=== PATIENT | female | born 1955 | race Caucasian/White ===

== ENCOUNTER 2017-04-08 18:21 | Emergency (ER) | payer OTHER ==
[~2017-04-08] VITALS: Ht 152.4 cm; Wt 85.3 kg
--- NOTE | ~2017-04-08 | EKG ---
[place] [address] [employer] [facility] [place] [address] ELECTROCARDIOGRAM REPORT Name: DMITRIY HICKS [id number] Admission: 04/08/17 Attend Phys: Discharge: 04/08/17 Date of : 51 Report #: [id number] THIS REPORT FOR: //name// [facility] ED Test Date: 2017-04-08 Test Time: 18:25:11 Pat Name: DMITRIY HICKS Department: Room: Gender: F [employer]: JS : 1955 Requested By: Amalia Gonsales Order Number: [id number] MD: Barry Ponce Measurements Intervals [place] Rate: 69 P: 48 CO: 134 QRS: -13 QRSD: 90 T: 20 QT: 394 QTc: 422 Interpretive Statements Sinus rhythm Low voltage, precordial leads Abnormal R-wave progression, early transition No previous ECG available for comparison Electronically Signed On 04-09-2017 16:42:05 CDT by Barry Ponce [email or web address] <ELECTRONICALLY SIGNED> By: Barry Ponce MD, [facility] 04/09/17 1642 1825 24 Barry Ponce MD, FACC /EPI
[2017-04-08] MEDS ORDERED: SIMVASTATIN40 MG PO (19:22)
[2017-04-08] MEDS ORDERED: METFORMIN HCL1000 MG PO (19:22)
[2017-04-08] MEDS ORDERED: ASPIR 8181 MG PO (19:22)
[2017-04-08] MEDS ORDERED: ALKA-SELTZER H1 EACH PO (19:23)
[2017-04-08 19:32] LABS: ABSOLUTE NEUTROPHILS 7.5 thou/uL (1.4-8.2); BASOPHILS 0.4 % (0.0-2.0); EOSINOPHILS 0.2 % (0.0-3.0); HEMATOCRIT 37.8 % (37.0-47.0); HEMOGLOBIN 12.8 gm/dL (12.0-15.0); LYMPHOCYTES 23.9 % (24.0-44.0); MCH 30.6 pg (26.0-34.0); MCHC 33.9 g/dL (28.0-37.0); MCV 90.4 fL (80.0-100.0); MONOCYTES 4.5 % (1.0-8.0); PLATELET COUNT 303 thou/uL (150-400); RBC 4.18 mil/uL (4.20-5.00); RDW 13.2 % (10.5-14.5); WBC 10.6 thou/uL (4.0-11.0)
[2017-04-08 19:33] LABS: MANUAL DIFF NO
[2017-04-08 19:39] LABS: ANION GAP 10 mmol/L (7-16); BUN 16 mg/dL (7-18); CALCIUM 9.1 mg/dL (8.5-10.1); CHLORIDE 102 mmol/L (98-107); CO2 27 mmol/L (21-32); CREATININE 0.8 mg/dL (0.6-1.0); GLUCOSE 139 mg/dL (74-106); POTASSIUM 3.9 mmol/L (3.5-5.1); SODIUM 139 mmol/L (136-145)
[2017-04-08 19:47] LABS: TROPONIN-I < 0.04 ng/mL (<0.04-0.07)
[2017-04-08 20:03] LABS: ALBUMIN 3.8 g/dL (3.4-5.0); DIRECT BILIRUBIN 0.1 mg/dL (<0.1-0.3); TOTAL BILIRUBIN 0.4 mg/dL (<0.1-1.0); TOTAL PROTEIN 7.5 g/dL (6.4-8.2)
[2017-04-08] MEDS ORDERED: PRILOSEC OTC20 MG PO (21:41)
[2017-04-08 22:11] VITALS: BP 132/64
== END 2017-04-08 22:12 | disposition home or self-care (01) ==
LOC: ER 18:21
PROVIDERS: Emergency Medicine
DX: K21.9 Gastro-esophageal reflux disease without esophagitis (principal); E11.9 Type 2 diabetes mellitus without complications; F17.210 Nicotine dependence, cigarettes, uncomplicated; Z86.73 Personal history of transient ischemic attack (TIA), and cerebral infarction without residual deficits